=== PATIENT | female | born 1975 | race Hispanic/Latino ===

== ENCOUNTER 2020-04-20 11:00 | Outpatient (CLI) | payer MEDICAID | END 2020-04-21 11:00 | disposition home or self-care (01) | LOC: SLR 11:00 | PROVIDERS: ATTEND Surgery | DX: G47.30 Sleep apnea, unspecified (principal) | CPT/HCPCS: G0399 ==

== ENCOUNTER 2020-07-23 06:35 | Day surgery (SDC) | payer MEDICAID ==
[2020-07-23] MEDS ORDERED: SODIUM CHLORIDE 0.9% 1000 ML 1,000 ML IV SCH (07:00)
--- NOTE | 2020-07-23 07:31 | Anesthesia Day of Surgery ---
Anesthesia Day of Surgery - Day of Surgery Patient Examined: Yes Patient H&P Reviewed: Yes Patient is NPO: Yes
--- NOTE | 2020-07-23 07:31 | Anesthesia Consultation ---
Anesthesia Consult and Med Hx Date of service: 07/23/20 - Airway Anesthetic Teeth Evaluation: Good ROM Head & Neck: Adequate Mental/Hyoid Distance: Adequate Mallampati Class: Class III Intubation Access Assessment: Possibly Difficult - Pre-Operative Health Status ASA Pre-Surgery Classification: ASA3 Proposed Anesthetic Plan: MAC - Pulmonary Hx Sleep Apnea: Yes (uses CPAP) - Central Nervous System Hx Neuromuscular Disorder: No (psoriasis) - Other Systems Hx Obesity: Yes (BMI 36.6)
[2020-07-23] MEDS ORDERED: propofoL 200 MG/20 ML VIAL IV ONE (08:26)
--- NOTE | 2020-07-23 08:28 | Operative Report ---
Operative Report Operative Report: DATE: 07/23/20 SURGERY: Upper endoscopy. SURGEON: Tony Tirado M.D. PROCEDURE: EGD with biopsy PRE OP DX: morbid obesity, GERD POST OP DX: morbid obesity, GERD TYPE OF ANESTHESIA: MAC. ESTIMATED BLOOD LOSS: None. COMPLICATIONS: None. SPECIMENS REMOVED: antral biopsy FINDINGS: 1. Small hiatal hernia. 2. antral gastritis INDICATIONS:INDICATION FOR PROCEDURE: Patient is a 44-year-old female with a long history of morbid obesity. She is planned to have a weight loss procedure and is here for preoperative planning EGD. PROCEDURE DETAILS: After consent was reviewed, patient was taken back to the operating room where patient was placed in the left lateral decubitus position and a bite block was placed in the mouth. After a time-out was called, MAC anesthesia was initiated. I then passed the endoscope into her oropharynx, into her esophagus, visualized the entire esophagus, which was all within normal limits. Z-line was noted to about 38cm from incisors. I then visualized the stomach and the first portion of the duodenum and there were no abnormalities I could clearly visualize except for antral gastritis. A cold forceps biopsy of the antrum was taken and will be sent to pathology to evaluate for H.pylori. I then retroflexed the scope in the stomach and visualized the hiatus and I could see a small hiatal hernia. I then desufflated the stomach and removed the endoscope. Patient tolerated procedure well and was transferred to recovery room in good and stable condition.
--- NOTE | 2020-07-23 08:30 | Discharge Summary ---
Providers - Providers Date of Admission: 07/23/20 Date of discharge: 07/23/20 Attending physician: CALLY ALVARADO MD Primary care physician: DONOVAN STRICKLAND Hospitalization Reason for admission: pre-op EGD for bariatric surgery Condition: Good Procedures: egd with biopsy Hospital course: Pt presented for a pre-op EGD as part of planning for up coming bariatric surgery. Procedure was uneventful and pt recovered well and was discharged to home. Disposition: DC-01 TO HOME OR SELFCARE Final Discharge Diagnosis (Prints w/discharge instructions): gerd Core Measure Documentation - Palliative Care Palliative Care/ Comfort Measures: Not Applicable - Core Measures Any of the following diagnoses?: none Exam - Physical Exam Narrative exam: unchanged from pre-op - Constitutional Vitals: Temp Pulse Resp BP Pulse Ox 98.6 F 81 14 100/76 97 07/23/20 06:20 07/23/20 06:20 07/23/20 06:20 07/23/20 06:20 07/23/20 06:20 Plan Activity: advance as tolerated Diet: low carbohydrate Follow up with: DONOVAN STRICKLAND MD [Primary Care Provider] - 7 Days
[2020-07-23 09:29] VITALS: BP 110/79
--- NOTE | 2020-07-23 09:42 | Post Anesthesia Evaluation ---
- Post Anesthesia Evaluation Patient Participated: Yes Airway Patent: Yes Stable Respiratory Function: Yes Nausea/Vomiting: No Temp > 96.8F: Yes Pain Manageable: Yes Adequeate Hydration: Yes Anesthesia Complications: No
== END 2020-07-23 06:36 | disposition home or self-care (01) ==
LOC: GIO 06:35
PROVIDERS: ATTEND Surgery
DX: K21.9 Gastro-esophageal reflux disease without esophagitis (principal); E66.01 Morbid (severe) obesity due to excess calories; K44.9 Diaphragmatic hernia without obstruction or gangrene; K29.70 Gastritis, unspecified, without bleeding; K31.89 Other diseases of stomach and duodenum; G47.30 Sleep apnea, unspecified; Z68.36 Body mass index [BMI] 36.0-36.9, adult; Z79.899 Other long term (current) drug therapy
CPT/HCPCS: 43239; 88305; 88342; J2704; J7030

== ENCOUNTER 2020-11-04 05:50 | Inpatient (IN) | payer MEDICAID ==
[2020-10-30 10:29] LABS: Hematocrit 38.1 % (30.3-42.9); Hemoglobin 13.3 gm/dl (10.1-14.3); Mean Corpuscular HGB Conc 35 % (30-34); Mean Corpuscular Volume 87 fl (79-97); Platelet Count 224 K/mm3 (140-440); Red Blood Count 4.39 M/mm3 (3.65-5.03); Red Cell Distribution Width 13.6 % (13.2-15.2)
[2020-10-30 11:15] LABS: Alanine Aminotransferase 21 units/L (7-56); Albumin 4.5 g/dL (3.9-5); Blood Urea Nitrogen 15 mg/dL (7-17); Calcium 9.5 mg/dL (8.4-10.2); Hemolysis Index 2
[2020-10-30 11:19] LABS: BUN/Creatinine Ratio 25
[2020-11-04] MEDS ORDERED: ENOXAPARIN 40 MG/0.4 ML INJ SUB-Q NR (06:00)
[2020-11-04] MEDS ORDERED: LACTATED RINGERS 1,000 ML ONE (06:22)
[2020-11-04] MEDS ORDERED: SCOPOLAMINE TRANSDERMAL PATCH 72 HR TD ONE (06:23)
[2020-11-04] MEDS ORDERED: BACTERIOSTATIC SODIUM CHLORIDE 0.9% 30 ML VIAL INFILTRATI ONE (06:36)
[2020-11-04] MEDS: SCOPOLAMINE TRANSDERMAL PATCH 72 HR TD SCH ×2 (06:40→13:55)
[2020-11-04] MEDS ORDERED: ROCURONIUM 50 MG/5 ML INJ IV ONE (06:50)
[2020-11-04] MEDS ORDERED: KETAMINE/STERILE WATER 50 MG/ML SYRINGE ONE (06:51)
[2020-11-04] MEDS ORDERED: LACTATED RINGERS 1,000 ML IV SCH (07:00)
[2020-11-04] MEDS ORDERED: MIDAZOLAM 2 MG/2 ML INJ IV NR (07:06)
--- NOTE | 2020-11-04 07:10 | Anesthesia Consultation ---
Anesthesia Consult and Med Hx Date of service: 11/04/20 - Airway Anesthetic Teeth Evaluation: Good ROM Head & Neck: Adequate Mental/Hyoid Distance: Adequate Mallampati Class: Class II Intubation Access Assessment: Good - Pulmonary Exam CTA: Yes - Cardiac Exam Cardiac Exam: RRR - Pre-Operative Health Status ASA Pre-Surgery Classification: ASA2 Proposed Anesthetic Plan: General - Pulmonary Hx Smoking: No Hx Sleep Apnea: Yes - Central Nervous System Hx Neuromuscular Disorder: No (psoriasis) Hx Back Pain: Yes (AND NECK) Hx Psychiatric Problems: No - Hematic Hx Anemia: No Hx Sickle Cell Disease: No - Other Systems Hx Alcohol Use: Yes (OCC. WINE) Hx Substance Use: No Hx Cancer: No Hx Obesity: Yes (BMI 36.6)
--- NOTE | 2020-11-04 07:11 | Anesthesia Day of Surgery ---
Anesthesia Day of Surgery - Day of Surgery Patient Examined: Yes Patient H&P Reviewed: Yes Patient is NPO: Yes
[2020-11-04] MEDS ORDERED: LIDOCAINE (2%) 20 MG/1 ML VIAL 20 ML MDV INFILTRATI ONE (07:14)
[2020-11-04] MEDS ORDERED: MAGNESIUM SULFATE 4 GM/100 ML BAG IV ONE (07:15)
[2020-11-04] MEDS ORDERED: LIDOCAINE 1%/EPINEPHRINE 1:100,000 VIAL (20 ML) INFILTRATI ONE ×2 (07:17→08:51)
[2020-11-04] MEDS ORDERED: BUPIVACAINE/PF (0.25%) 2.5 MG/ML 30 ML VIAL INFILTRATI ONE ×3 (07:17→08:51)
[2020-11-04] MEDS ORDERED: ACETAMINOPHEN IV 1,000 MG/100 ML BOTTLE IV NR (08:00)
[2020-11-04] MEDS ORDERED: SODIUM CHLORIDE 0.9% IRRIG SOLN 2000 ML IR ONE (08:52)
[2020-11-04] MEDS ORDERED: SODIUM CHLORIDE 0.9% IRR 1,500 ML BOTTLE IR ONE (08:55)
[2020-11-04] MEDS ORDERED: propofoL 200 MG/20 ML VIAL IV ONE (09:09)
[2020-11-04] MEDS ORDERED: ONDANSETRON 4 MG/2 ML INJ ONE (09:45)
[2020-11-04] MEDS ORDERED: KETOROLAC 30 MG/1 ML INJ ONE (09:45)
[2020-11-04] MEDS ORDERED: dexAMETHasone 20 MG/5 ML VIAL ONE (09:45)
[2020-11-04] MEDS ORDERED: MIDAZOLAM 2 MG/2 ML INJ ONE ×2 (09:49)
--- NOTE | 2020-11-04 10:42 | Operative Report ---
Operative Report Operative Report: DATE OF PROCEDURE: 11/04/2020 SURGEON: Tony Tirado MD ANGLE [employer]ER OPERATOR: Jamaal Hudson CSA MD PREOPERATIVE DIAGNOSIS: Morbid obesity, GERD POSTOPERATIVE DIAGNOSES: Morbid obesity, GERD PROCEDURES PERFORMED: 1. Laparoscopic gastric bypass. 2. Hiatal hernia repair 3. EGD. ANESTHESIA: General endotracheal tube intubation, TAP block SPECIMENS: None. ESTIMATED BLOOD LOSS: Less than 10 mL. FINDINGS: Normal anatomy. COMPLICATIONS: None. INDICATION: Ms. Ochoa is a 44-year-old female with history of morbid obesity, and obesity related co-morbidities. She presented today for gastric bypass. She signed informed consent and expressed understanding of risks and benefits. DESCRIPTION OF PROCEDURE: Patient was brought to the OR suite, laid in supine position. Bilateral lower extremity SCDs were placed. General anesthesia was induced via successful endotracheal tube intubation. Patient's abdomen was prepped and draped in sterile fashion. A veress needle was used to insuflate the abdomen to a pressure of 15mmHg via a stab incision in the left subcostal area.Using Optiview technique, a 5-mm trocar was placed into the abdominal cavity under direct vision just superior and to the left of the umbilicus. There was noted to be no gross injury to any intraabdominal structures. 4 working trocars were placed under direct visualization, 12 mm in the right mid abdomen mid clavicular line and three 5-mm trocars in the right upper quadrant, epigastric, left upper quadrant. At this time, the ligament of Treitz identified and followed down approximately 40 cm and the jejunum was transected, after the omentum was split with the Harmonic scalpel . The distal segment of jejunum was then traced for approximately 75 cm and a stapled [id number] jejunojejunostomy was performed. The common enterotomy was closed with 2 firings of the endoscopic stapler. The mesenteric defect was closed with running non-absorbable v-loc suture. This anastomosis was found to be patent without kink, obstruction or bleeding. At this time, the patient was placed in steep reverse Trendelenburg position. A liver retractor was placed through the epigastric port to elevate the left lateral lobe of the liver. A small gastric pouch was formed measuring about 4cm from the hiatus with serial firings of the blue staple load. There was noted to be a hiatal hernia defect through which the proximal gastric pouch was herniating above the level of the diaphragm. The left and right crura were skeletonized, and the sac attachments released until the gastric pouch rested in the abdominal cavity without tension for about 2cm. An anterior cruraplasty was performed with a U-stitch using surgidac suture. The Sherri limb was then brought in an antegastric antecolic fashion and secured with 2 stay sutures to the gastric pouch. After this, the enterotomies were made with Harmonic scalpel, and a [id number] stapled gastrojejunostomy was performed with a mechanical stapler. With a common anastamosis measuring about 20mm. After this, a 2-layer running closure using absorbable v-loc suture was done. The first being mucosal approximation. Prior to completion of the first layer, I passed an EGD scope beyond the anastomosis to act as a stent. The first layer was completed, the second was then performed. After this, the EGD was retracted slightly. A bowel clamp was placed on the proximal Sherri limb. The anastomosis was submerged under saline. Via intraluminal EGD insufflation, there was noted be no bubbles in the saline indicating an air tight anastomosis. There was noted to be no obstruction or bleeding intraluminally in the pouch or the anastomosis. At this time, the scope was removed. The saline was aspirated. Tiseel was placed over the anastomosis. All trocars were removed under direct visualization and the abdomen was then desufflated. A TAP block was performed using 0.25% marcaine along bilateral mid axillary lines starting at the subcostal margin to just below the level of the umbilicus. The 12mm trocars were closed at the fascial layer with #1 PDS using a suture passer device. The skin incisions were closed with 4-0 Monocryl followed by Dermabond dressings. Patient was awoken and taken to recovery in stable condition. All counts were correct.
[2020-11-04] MEDS ORDERED: HYDROmorphone 1 MG/1 ML INJ ONE (11:13)
[2020-11-04] MEDS: HYDROmorphone 1 MG/1 ML INJ IV PRN ×2 (11:15→11:25)
[2020-11-04] MEDS ORDERED: ONDANSETRON 4 MG/2 ML INJ IV PRN (13:00)
[2020-11-04] MEDS ORDERED: hydrALAZINE 20 MG/1 ML INJ IV PRN (13:00)
[2020-11-04] MEDS ORDERED: METOCLOPRAMIDE 10 MG/2 ML INJ IV PRN (13:00)
[2020-11-04] MEDS: KETOROLAC 30 MG/1 ML INJ IV SCH ×3 (13:54→23:06)
[2020-11-04] MEDS: PANTOPRAZOLE 40 MG INJ IV SCH (13:55)
[2020-11-04] MEDS: ACETAMINOPHEN IV 1,000 MG/100 ML BOTTLE IV SCH ×2 (14:29→21:04)
[2020-11-04] MEDS: ceFAZolin/NS 1 GM/50 ML 1 GM/50 ML BAG IV SCH ×2 (15:52→23:05)
--- NOTE | 2020-11-04 16:15 | Post Anesthesia Evaluation ---
- Post Anesthesia Evaluation Patient Participated: Yes Airway Patent: Yes Stable Respiratory Function: Yes Nausea/Vomiting: No Temp > 96.8F: Yes Pain Manageable: Yes Adequeate Hydration: Yes Anesthesia Complications: No Block Receding Appropriately: Not Applicable Patient on Ventilator: No
[2020-11-04] MEDS: metroNIDAZOLE/NS 500 MG/100 ML 500 MG/100 ML BAG IV SCH (17:22)
[2020-11-04] MEDS: LACTATED RINGERS 1,000 ML IV SCH (19:05)
[2020-11-04] MEDS: SIMETHICONE 80 MG CHEW TAB PO PRN (20:12)
[2020-11-04] MEDS: metroNIDAZOLE/NS 500 MG/100 ML 500 MG/100 ML BAG IV NR ×2 (21:05→23:07)
[2020-11-05] MEDS: metroNIDAZOLE/NS 500 MG/100 ML 500 MG/100 ML BAG IV SCH ×2 (00:05→10:57)
[2020-11-05] MEDS: KETOROLAC 30 MG/1 ML INJ IV SCH ×3 (00:06→11:46)
[2020-11-05] MEDS: ACETAMINOPHEN IV 1,000 MG/100 ML BOTTLE IV SCH ×2 (02:05→09:56)
[2020-11-05] MEDS: LACTATED RINGERS 1,000 ML IV SCH ×2 (04:23→10:09)
[2020-11-05] MEDS: SIMETHICONE 80 MG CHEW TAB PO PRN (05:15)
[2020-11-05 05:20] LABS: Basophils # (Auto) 0.1 K/mm3 (0.0-0.1); Basophils % (Auto) 0.5 % (0.0-1.8); Eosinophils % (Auto) 0.1 % (0.0-4.3); Hematocrit 33.3 % (30.3-42.9); Hemoglobin 11.7 gm/dl (10.1-14.3); Lymphocytes # (Auto) 1.6 K/mm3 (1.2-5.4); Lymphocytes % (Auto) 11.3 % (13.4-35.0); Mean Corpuscular HGB Conc 35 % (30-34); Mean Corpuscular Volume 89 fl (79-97); Monocytes # (Auto) 0.9 K/mm3 (0.0-0.8); Monocytes % (Auto) 6.3 % (0.0-7.3); Platelet Count 261 K/mm3 (140-440); Red Blood Count 3.76 M/mm3 (3.65-5.03); Red Cell Distribution Width 13.3 % (13.2-15.2)
[2020-11-05 05:38] LABS: Alanine Aminotransferase 17 units/L (7-56); Albumin 3.9 g/dL (3.9-5); BUN/Creatinine Ratio 25; Blood Urea Nitrogen 15 mg/dL (7-17); Calcium 8.8 mg/dL (8.4-10.2); Hemolysis Index 2
--- OUTSIDE RECORDS SUMMARY | 2020-11-05 07:00 | External Medical Summary ---
:1975 Author Organization [facility], [facility] Address [address] [place] [address] Care Team Providers Name Role Phone Tony Tirado Unavailable [phone] PROBLEMS Type Condition ICD9-CM [id number] Onset Condition W/U Status Risk SNOM ED Notes Code Code Dates Status Code Problem Psoriasis, L40.9 Active confirmed 1962760 unspecified Problem Arthropathic L40.50 Active confirmed 6658081 1 psoriasis, unspecified Problem Personal Z86.32 Active confirmed 565944844 history of gestational diabetes Problem Dietary Z71.3 Active confirmed 320233854 counseling and surveillance Problem Gastro-esopha K21.9 Active confirmed 227562 005 geal reflux disease without esophagitis Problem Major F32.9 Active confirmed 64783448 depressive disorder, single episode, unspecified Problem Morbid E66.01 Active confirmed 050905389 (severe) obesity due to excess calories Problem Anemia, D64.9 Active confirmed 264904147 unspecified Problem Functional K30 Active confirmed 0308442 dyspepsia ALLERGIES No Known Allergies ENCOUNTERS from 1975 to 2020-11-04 Encounter Location Date Provider Diagnosis [facility] [address] [facility], [place] [address] IMMUNIZATIONS No Information SOCIAL HISTORY Sex Assigned At : Social History Observation Description Sex Assigned At Unknown REASON FOR REFERRAL from 1975 to 2020-11-04 Diagnosis 1 Morbid (severe) obesity due to excess calories (E66.01) Diagnosis 2 Arthropathic psoriasis, 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 9) Diagnosis 4 Major depressive disorder, [place] episode, unspecified (F32.9) Diagnosis 5 Personal history of gestatio nal diabetes (Z86.32) Diagnosis 6 Anemia, unspecified (D64.9) Diagnosis 7 Functional dyspepsia (K30) Diagnosis 8 Gastro-esophageal reflux dis ease without esophagitis (K21.9) Diagnosis 9 Dietary counseling and surve illance (Z71.3) Diagnosis 10 Low back pain (M54.5) Diagnosis 11 Sleep disorder, unspecified (G47.9) Referral Organization [facility] Referring Provider First Name Sygisela Referring Provider Last Name Candida Referring Provider Specialty Surgery Referred Provider [facility], - Referral Priority Routine VITAL SIGNS No information MEDICATIONS Medication SIG (Take, Route, Notes Start Date End Date Status Frequency, Duration) Iron 325 (65 Fe) MG 1 tablet Orally Once a Active day for 30 day(s) HYDROcodone-Acetaminop 15 ml as needed Orally Oct, Oct, Active hen 7.5-325 MG/15ML every 6 hrs for 7 days NexIUM 40 MG 1 capsule Orally Once a Oct, Active day for 30 day(s) Cosentyx 150 MG/ML 1 ml Subcutaneous for 30 Active day(s) Zofran 4 MG 1-2 tablet Orally q 4-6 Oct, Active hours prn nausea for 3 days PROCEDURES No Information RESULTS No Results REASON FOR VISIT Gastric Bypass MEDICAL (GENERAL) HISTORY Type Description Date Medical History psoriasis / psoriatic arthritis Medical History depression Medical History back pain Medical History gestational diabetes Medical History gerd Surgical History lap hysterectomy 2012 Surgical History abdominoplasty 2018 Hospitalization History as above Goals Section No Information Health Concerns No Information MEDICAL EQUIPMENT No Information MENTAL STATUS No Information FUNCTIONAL STATUS No Information ASSESSMENTS No Information PLAN OF TREATMENT Medication Medication Name Sig Start Date Stop Date Zofran 4 MG 1-2 tablet Orally q 4-6 Oct, hours prn nausea for 3 days NexIUM 40 MG 1 capsule Orally Once a day Oct, for 30 day(s) HYDROcodone-Acetaminophen 15 ml as needed Orally every 21 Oct, 2 021 Oct, 7.5-325 MG/15ML 6 hrs for 7 days Referrals Referral Date Details Insurance Providers Payer Name Payer Address Payer Insured Name Patient Coverage Co verage End Phone Relationship to Start Date [place] e Insured [employer] [address] [address] [phone] Lungaro,Kervin self /MANOJ [address] [address]
[2020-11-05] MEDS ORDERED: HYDROcodone/Acetaminophen 7.5-325MG-15ML ORAL LIQD PO PRN (08:00)
[2020-11-05 08:41] VITALS: BP 103/31
[2020-11-05] MEDS: PANTOPRAZOLE 40 MG INJ IV SCH (09:57)
[2020-11-05] MEDS ORDERED: ENOXAPARIN 40 MG/0.4 ML INJ SUB-Q SCH (10:00)
--- NOTE | 2020-11-05 15:22 | Discharge Summary ---
Providers - Providers Date of Admission: 11/04/20 05:50 Date of discharge: 11/05/20 Attending physician: CALLY ALVARADO MD 11/04/20 10:35 Physical Therapy Evaluation and Treat [CONS] Routine Comment: Reason For Exam: post op bariatric surgery Primary care physician: DONOVAN STRICKLAND Hospitalization Reason for admission: Status post bariatric surgery Condition: Good Procedures: Laparoscopic gastric bypass with hiatal hernia repair Hospital course: Patient had an uncomplicated recovery status post gastric bypass. She was tolerating clear liquids with good pain control. She was ambulating without difficulty. Patient showed no clinical signs of leak or bleeding upon discharge. Disposition: DC-01 TO HOME OR SELFCARE Final Discharge Diagnosis (Prints w/discharge instructions): Morbid obesity, gastroesophageal reflux Core Measure Documentation - Palliative Care Palliative Care/ Comfort Measures: Not Applicable - Core Measures Any of the following diagnoses?: none Exam - Constitutional Vitals: Temp Pulse Resp BP Pulse Ox 99.2 F 76 18 103/31 97 11/05/20 07:56 11/05/20 07:56 11/05/20 07:56 11/05/20 07:56 11/05/20 07:56 General appearance: Present: no acute distress, well-nourished, obese - Respiratory Respiratory effort: normal - Cardiovascular Rhythm: regular Heart Sounds: Present: S1 & S2 - Extremities Extremities: no ischemia - Abdominal General gastrointestinal: Present: soft, other (Appropriately tender to palpat ion, incisions clean dry and intact) Plan Activity: advance as tolerated Diet: clear liquids Wound: open to air, keep clean and dry Follow up with: DONOVAN STRICKLAND MD [Primary Care Provider] - 7 Days
== END 2020-11-05 16:47 | disposition home or self-care (01) | DRG 621 ==
LOC: 3A 05:50 → 3B-SURG 10:46
PROVIDERS: ADMIT Surgery; ATTEND Surgery
PROC: 0D164ZA Bypass Stomach to Jejunum, Percutaneous Endoscopic Approach (ICD-10-PCS; principal; 2020-11-04)
PROC: 0BQT4ZZ Repair Diaphragm, Percutaneous Endoscopic Approach (ICD-10-PCS; 2020-11-04)
PROC: 0DJ08ZZ Inspection of Upper Intestinal Tract, Via Natural or Artificial Opening Endoscopic (ICD-10-PCS; 2020-11-04)
DX: E66.01 Morbid (severe) obesity due to excess calories (principal); K21.9 Gastro-esophageal reflux disease without esophagitis; K44.9 Diaphragmatic hernia without obstruction or gangrene; G47.30 Sleep apnea, unspecified; Z68.36 Body mass index [BMI] 36.0-36.9, adult; Z20.822 Contact with and (suspected) exposure to COVID-19; F32.9 Major depressive disorder, single episode, unspecified; Z90.49 Acquired absence of other specified parts of digestive tract; L40.50 Arthropathic psoriasis, unspecified
CPT/HCPCS: 36415; 80053; 85025; 85027; 94660; G0378; C9113; C9250; J0131; J0690; J1100; J1170; J1650; J1885; J2250; J2405; J2704; J3475; J3490; J7120; U0003